=== PATIENT | male | born 1980 | race Caucasian/White ===

== ENCOUNTER 2023-06-08 15:14 | Emergency (ER) | payer OTHER, SELFPAY ==
[2023-06-08 15:16] VITALS: BP 149/85; PULSE 80; RESP 18; TEMP 36.6; O2SAT 99
--- NOTE | 2023-06-08 16:53 | ED.SKABFB ---
HPI - Skin/Abscess/Foreign Bdy General Chief complaint: Skin/Abscess/Foreign Body Stated complaint: boils Time Seen by Provider: 06/08/23 16:40 Source: patient Mode of arrival: ambulatory Limitations: no limitations History of Present Illness HPI narrative: This is a 43 year old male that presents to the ER for abscesses present on the right axilla. Noted over the last couple of weeks. Denies fever or drainage. Related Data Allergies Allergy/AdvReac Type Severity Reaction Status Date / Time Penicillins Allergy Unknown Unknown Verified 06/08/23 15:15 Review of Systems Review of Systems: CONSTITUTIONAL: Denies fever SKIN: Reports redness and swelling All systems reviewed & are unremarkable except as noted in HPI and below PMFSH Past Medical History Medical History (Updated 06/08/23 @ 17:46 by Minnie Garcia PA-C) No active medical problems Family History Family History (Updated 12/25/11 @ 12:21 by DOCTOR UNKNOWN) Other Diabetes mellitus Social History Social History Alcohol intake: never Exam Narrative: GENERAL: Well-appearing, well-nourished, and in no acute distress. HEAD: Normocephalic, atraumatic. EYES: EOMI. CHEST: No respiratory distress. HEART: Regular rate EXTREMITIES: Normal range of motion. No edema. Right axilla with 2 areas of erythema and edema with central fluctuance. No lymphangitic streaking SKIN: Warm, dry, no rash. NEURO: No focal deficits. Alert and oriented x3. PSYCH: Normal mood and affect Course Course Emergency Course: patient updated on workup and agrees with plan of care Vital Signs Vital signs: Vital Signs Temperature 97.8 F 06/08/23 15:16 Pulse Rate 80 06/08/23 15:16 Respiratory Rate 18 06/08/23 15:16 Blood Pressure 149/85 H 06/08/23 15:16 Pulse Oximetry 99 06/08/23 15:16 Oxygen Delivery Room Air 06/08/23 15:16 Temperature 97.8 F 06/08/23 15:16 Pulse Rate 80 06/08/23 15:16 Respiratory Rate 18 06/08/23 15:16 Blood Pressure 149/85 H 06/08/23 15:16 Pulse Oximetry 99 06/08/23 15:16 Oxygen Delivery Room Air 06/08/23 15:16 Procedures Abscess I/D upper extremity: Date of Incision: 06/08/23 Time of Incision: 17:49 Side (if applicable): right Local Anesthetic: lidocaine 1% and with epi Amount of anesthesia used (mL): 2 Technique: incised with #11 blade Irrigation: Yes Packing used?: plain I&D Results: Pus and Blood back: Date of Incision: 06/08/23 Time of Incision: 17:50 Side (if applicable): right Local Anesthetic: lidocaine 1% and with epi Amount of anesthesia used (mL): 1 Technique: incised with #11 blade Irrigation: Yes Packing used?: none I&D Results: Pus and Blood MDM - Skin/Abscess/Foreign Bdy MDM Narrative Medical decision making narrative: Patient presents to the emergency department for an abscess present to the right axilla over the last couple of weeks. Additional just posterior to this. He is afebrile and nontoxic appearing. They were apparently drained. Wound sent for culture. He will be started on oral antibiotics and was instructed to have follow-up with primary provider. He was given warnings to return to the ER. He was also instructed if he continues to experience these he should see a physician obstetrician Differential Diagnosis Differential diagnosis: Likely abscess of skin or subcutaneous tissue and cellulitis Critical Care Time Critical Care Time Critical Care Time: No Discharge Plan Discharge Clinical Impression: Abscess of skin or subcutaneous tissue Qualifiers: Site of cutaneous abscess: extremity Site of cutaneous abscess of extremity: axilla Laterality: right Qualified Code(s): L02.411 - Cutaneous abscess of right axilla Patient Disposition: Home, Self-Care Condition: Stable Instructions: Abscess (ED) Additional Instructions: Return if symptoms wor
== END 2023-06-08 18:02 | disposition home or self-care (01) ==
PROVIDERS: Emergency Provider Physician Assistant
DX: L02.411 Cutaneous abscess of right axilla (principal)
CPT/HCPCS: 10061; 87070; 87147; 87186; 87205; 99283